=== PATIENT | female | born 2005 | race Caucasian/White ===

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

== ENCOUNTER 2023-01-24 17:01 | Emergency (ER) | payer OTHER ==
[~2023-01-24] VITALS: Ht 162.6 cm; Wt 63.6 kg
[~2023-01-24 17:01] MED LIST: ALBU8.5H INH; OLAN1TAB20 PO
[2023-01-24] MEDS ORDERED: DOCU100C16 PO (17:18)
[2023-01-24] MEDS ORDERED: SERT50TA29 PO (17:18)
[2023-01-24] MEDS ORDERED: CLON-412 PO (17:18)
[2023-01-24] MEDS ORDERED: HALO5TAB33 PO (17:18)
[2023-01-24] MEDS ORDERED: BENZ0.5T23 PO (17:18)
[2023-01-24 17:52] LABS: HEMATOCRIT 36.8 % (36.0-47.0); HEMOGLOBIN 11.5 g/dl (12.0-15.5); MEAN CORPUSCULAR HEMOGLOBIN 26.6 pg (27.0-33.0); MEAN CORPUSCULAR HGB CONC 31.3 g/dl (32.0-36.5); PLATELET COUNT, AUTOMATED 303 10^3/uL (150-450); RED BLOOD COUNT 4.33 10^6/uL (4.00-5.40); WHITE BLOOD COUNT 6.5 10^3/uL (4.0-10.0)
[2023-01-24 18:12] LABS: HCG, SERUM QUALITATIVE NEGATIVE (NEGATIVE)
[2023-01-24 18:13] LABS: ETHYL ALCOHOL (ETHANOL) 0.005 % (0.000-0.010)
[2023-01-24 18:14] LABS: SALICYLATE LEVEL < 3.0 MG/DL (<30)
[2023-01-24 18:15] LABS: ACETAMINOPHEN LEVEL < 2.0 UG/ML (10.0-20.0); ALBUMIN 3.8 G/DL (3.2-5.2); ALKALINE PHOSPHATASE 86 U/L (46-116); ALT/SGPT 34 U/L (7.0-40); AST/SGOT 29 U/L (<34); BILIRUBIN,DIRECT 0.2 MG/DL (<0.4); BILIRUBIN,TOTAL 0.8 MG/DL (0.3-1.2); BLOOD UREA NITROGEN 12 MG/DL (9-23); CALCIUM LEVEL 8.9 MG/DL (8.5-10.1); CARBON DIOXIDE LEVEL 26 MMOL/L (20-31); CHLORIDE LEVEL 106 MMOL/L (98-107); CREATININE FOR GFR 0.71 MG/DL (0.55-1.30); GLUCOSE, FASTING 94 MG/DL (60-100); POTASSIUM SERUM 3.9 MMOL/L (3.5-5.1); SODIUM LEVEL 140 MMOL/L (136-145); TOTAL PROTEIN 6.7 G/DL (5.7-8.2)
[2023-01-24 18:17] LABS: THYROID STIMULATING HORMONE 1.435 uIU/ML (0.48-4.17)
[2023-01-24] MEDS ORDERED: cloNIDine 0.1MG TABLET PO PRN (18:20)
[2023-01-24 18:23] LABS: AMPHETAMINES LEVEL URINE NEGATIVE (NEGATIVE); BENZODIAZEPINES URINE NEGATIVE (NEGATIVE); CANNABINOIDS URINE NEGATIVE (NEGATIVE); PHENCYCLIDINE URINE NEGATIVE (NEGATIVE)
[2023-01-24 18:24] LABS: BARBITURATES URINE NEGATIVE (NEGATIVE); COCAINE METABOLITE URINE NEGATIVE (NEGATIVE); METHADONE URINE NEGATIVE (NEGATIVE); OPIATES URINE NEGATIVE (NEGATIVE)
[2023-01-24] MEDS ORDERED: OLAN1TAB20 PO (18:52)
[2023-01-24] MEDS ORDERED: HOME MED LIST COMPLETE! XX SCH (18:55)
[2023-01-24 20:12] VITALS: BP 108/55
[2023-01-24] MEDS ORDERED: DOCUSATE SODIUM 100MG CAPSULE PO SCH (21:00)
[2023-01-25] MEDS ORDERED: SERTRALINE HCL 50 MG TAB PO SCH (09:00)
== END 2023-01-24 21:25 | disposition home or self-care (01) ==
LOC: M ED 17:01
DX: F20.9 Schizophrenia, unspecified (principal); F43.0 Acute stress reaction

== ENCOUNTER 2024-07-01 09:54 | Inpatient (IN) | payer OTHER ==
[~2024-07-01] VITALS: Ht 162.6 cm; Wt 102.5 kg
[~2024-07-01 09:54] MED LIST changes: +BENZ0.5T2 PO; +CLON-412 PO; +DOCU100C16 PO; +HALO5TAB33 PO; +SERT50TA29 PO
[2024-07-01 10:46] LABS: HEMATOCRIT 39.9 % (36.0-47.0); HEMOGLOBIN 13.2 g/dl (12.0-15.5); MEAN CORPUSCULAR HEMOGLOBIN 29.7 pg (27.0-33.0); MEAN CORPUSCULAR HGB CONC 33.1 g/dl (32.0-36.5); MEAN CORPUSCULAR VOLUME 89.7 fl (80.0-96.0); PLATELET COUNT, AUTOMATED 270 10^3/uL (150-450); RED BLOOD COUNT 4.45 10^6/uL (4.00-5.40)
[2024-07-01 11:12] LABS: AMPHETAMINES LEVEL URINE NEGATIVE (NEGATIVE)
[2024-07-01 11:17] LABS: ETHYL ALCOHOL (ETHANOL) 0.007 % (0.000-0.010)
[2024-07-01 11:17] LABS: BARBITURATES URINE NEGATIVE (NEGATIVE); COCAINE METABOLITE URINE NEGATIVE (NEGATIVE); METHADONE URINE NEGATIVE (NEGATIVE); OPIATES URINE NEGATIVE (NEGATIVE); PHENCYCLIDINE URINE NEGATIVE (NEGATIVE)
[2024-07-01 11:19] LABS: BENZODIAZEPINES URINE POSITIVE (NEGATIVE); CANNABINOIDS URINE POSITIVE (NEGATIVE)
[2024-07-01 11:19] LABS: ALBUMIN 4.2 G/DL (3.2-5.2); ALKALINE PHOSPHATASE 108 U/L (46-116); ALT/SGPT 15 U/L (7.0-40); AST/SGOT 20 U/L (<34); BILIRUBIN,DIRECT 0.2 MG/DL (<0.4); BILIRUBIN,TOTAL 0.5 MG/DL (0.3-1.2); BLOOD UREA NITROGEN 8 MG/DL (9-23); CALCIUM LEVEL 9.3 MG/DL (8.5-10.1); CARBON DIOXIDE LEVEL 26 MMOL/L (20-31); CHLORIDE LEVEL 110 MMOL/L (98-107); CREATININE FOR GFR 0.84 MG/DL (0.55-1.30); GLOMERULAR FILTRATION RATE > 60.0 (>60); GLUCOSE, FASTING 80 MG/DL (60-100); POTASSIUM SERUM 4.5 MMOL/L (3.5-5.1); SALICYLATE LEVEL < 3.0 MG/DL (<30); SODIUM LEVEL 140 MMOL/L (136-145); TOTAL PROTEIN 7.2 G/DL (5.7-8.2)
[2024-07-01 11:23] LABS: THYROID STIMULATING HORMONE 1.393 uIU/ML (0.55-4.78)
[2024-07-01 11:30] LABS: HCG, SERUM QUALITATIVE NEGATIVE (NEGATIVE)
[2024-07-01] MEDS ORDERED: MELA5TAB10 PO (12:13)
[2024-07-01] MEDS ORDERED: ALPR0.5T3 PO (12:13)
[2024-07-01] MEDS ORDERED: cloNIDine 0.1MG TABLET PO PRN (12:20)
[2024-07-01] MEDS: cloNIDine 0.1MG TABLET PO PRN (12:50)
[2024-07-01] MEDS: NICOTINE 21MG/24HR 1 EA TRANSDERMAL TD ONE (12:50)
[2024-07-01] MEDS ORDERED: HOME MED LIST COMPLETE! XX SCH (14:25)
[2024-07-01] MEDS: OLANZapine 10 MG TAB PO SCH (20:32)
[2024-07-02] MEDS ORDERED: IBUPROFEN 400MG TAB PO PRN (08:55)
[2024-07-02] MEDS ORDERED: MAALOX 30 ML SUSP *UDC PO PRN (08:55)
[2024-07-02] MEDS ORDERED: MOM 30ML SUSPENSION UDC PO PRN (08:55)
[2024-07-02] MEDS: UNRESOLVED CLARIFICATION ENTRY XX SCH (09:00)
[2024-07-02] MEDS: SERTRALINE HCL 50 MG TAB PO SCH (09:11)
[2024-07-02 10:12] VITALS: BP 111/73; TEMP 97.8; O2SAT 98
[2024-07-02] MEDS: diphenhydrAMINE 25MG CAP PO PRN (10:37)
[2024-07-02] MEDS: NICOTINE 21MG/24HR 1 EA TRANSDERMAL TD SCH (13:01)
[2024-07-02 15:27] VITALS: BP 126/77; TEMP 98.2; O2SAT 99
[2024-07-02] MEDS: traZODone 50 MG TAB PO PRN (20:11)
[2024-07-02] MEDS: OLANZapine 10 MG TAB PO SCH (20:11)
[2024-07-02] MEDS ORDERED: cloNIDine 0.1MG TABLET PO PRN (20:20)
[2024-07-02] MEDS ORDERED: UNRESOLVED CLARIFICATION ENTRY XX SCH (21:00)
[2024-07-03 06:37] VITALS: BP 130/64; TEMP 97.8; O2SAT 98
[2024-07-03] MEDS: SERTRALINE HCL 50 MG TAB PO SCH (08:14)
[2024-07-03 08:51] VITALS: BP 142/78
[2024-07-03] MEDS: clonazePAM 0.5 MG TAB PO SCH (09:19)
[2024-07-03] MEDS: cloNIDine 0.1MG TABLET PO SCH (09:19)
[2024-07-03 16:17] VITALS: BP 112/76; TEMP 97.3; O2SAT 97
[2024-07-03] MEDS ORDERED: ALBUTEROL 90 MCG/ACT 8GM HFA INHALER INH PRN (18:45)
[2024-07-03] MEDS: OLANZapine 10 MG TAB PO SCH (20:00)
[2024-07-04 06:20] VITALS: BP 127/62; TEMP 97.5; O2SAT 100
[2024-07-04 08:55] VITALS: BP 126/68
[2024-07-04] MEDS: SERTRALINE HCL 25 MG TABLET PO SCH (08:55)
[2024-07-04 16:26] VITALS: BP 116/66; TEMP 98.8; O2SAT 97
[2024-07-04] MEDS: NICOTINE POLACRILEX 2 MG GUM PO PRN (20:10)
[2024-07-05 06:43] VITALS: BP 114/59; TEMP 98.1; O2SAT 98
[2024-07-05 15:54] VITALS: BP 112/62; TEMP 98.2; O2SAT 100
[2024-07-06 06:24] VITALS: BP 114/65; TEMP 98.7; O2SAT 98
[2024-07-06 16:00] VITALS: BP 115/62; TEMP 98.7; O2SAT 95
[2024-07-06] MEDS: ACETAMINOPHEN TAB 650MG DOSE (2X325MG) PO PRN (17:08)
[2024-07-07 06:38] VITALS: BP 128/70; TEMP 98.5; O2SAT 97
[2024-07-07 08:02] VITALS: BP 135/73
[2024-07-07 08:05] VITALS: BP 135/73
[2024-07-07] MEDS ORDERED: OLAN1TAB20 PO ×2 (10:57→14:07)
[2024-07-07] MEDS ORDERED: SERT25TA21 PO ×2 (10:57→14:07)
== END 2024-07-07 13:15 | disposition home or self-care (01) | DRG 751 ==
LOC: M ED 09:54 → M ED INP 07-02 08:55 → M PSY 07-02 09:36
PROVIDERS: ADMIT Psychiatry & Neurology Psychiatry; ATTEND Psychiatry & Neurology Psychiatry
DX: F33.9 Major depressive disorder, recurrent, unspecified (principal); R45.851 Suicidal ideations; Z79.899 Other long term (current) drug therapy

== ENCOUNTER → 2024-08-22 | Outpatient (REF) | payer OTHER, MEDICAID ==
[~2024-08-22] MED LIST changes: +ALPR0.5T3 PO; +MELA5TAB10 PO; +SERT25TA21 PO
[2024-08-22 17:51] LABS: ALBUMIN 4.1 G/DL (3.2-5.2); ALKALINE PHOSPHATASE 108 U/L (35-104); ALT/SGPT 25 U/L (7.0-40); AST/SGOT 19 U/L (<34); BILIRUBIN,TOTAL 0.5 MG/DL (0.3-1.2); BLOOD UREA NITROGEN 12 MG/DL (9-23); CALCIUM LEVEL 9.9 MG/DL (8.5-10.1); CARBON DIOXIDE LEVEL 25 MMOL/L (20-31); CHLORIDE LEVEL 110 MMOL/L (98-107); CHOLESTEROL LEVEL 168 MG/DL (<200); CREATININE FOR GFR 0.74 MG/DL (0.55-1.30); GLOMERULAR FILTRATION RATE > 60.0 (>60); GLUCOSE, FASTING 87 MG/DL (60-100); HDL CHOLESTEROL 40.9 MG/DL (>40); LDL CHOLESTEROL 88.3 MG/DL (<100); NON-HDL-C 127.1 MG/DL; POTASSIUM SERUM 4.1 MMOL/L (3.5-5.1); SODIUM LEVEL 141 MMOL/L (136-145); TOTAL PROTEIN 7.5 G/DL (5.7-8.2); TRIGLYCERIDES LEVEL 194 MG/DL (<150)
[2024-08-22 17:53] LABS: FREE T4 1.06 NG/DL (0.89-1.76); THYROID STIMULATING HORMONE 1.503 uIU/ML (0.55-4.78)
== END ==
LOC: M LAB REF 16:28
PROVIDERS: ATTEND Family Medicine Addiction Medicine
DX: N91.2 Amenorrhea, unspecified (principal); Z68.34 Body mass index [BMI] 34.0-34.9, adult

== ENCOUNTER 2025-01-27 18:47 | Inpatient (IN) | payer OTHER ==
[~2025-01-27] VITALS: Ht 160 cm; Wt 87.0 kg
[2025-01-27] MEDS: ACETAMINOPHEN 325 MG TAB PO ONE (22:09)
[2025-01-27] MEDS ORDERED: MOM 30ML SUSPENSION UDC PO PRN (22:55)
[2025-01-27] MEDS ORDERED: MAALOX 30 ML SUSP *UDC PO PRN (22:55)
[2025-01-27] MEDS ORDERED: EXCETAB32 PO (22:57)
[2025-01-27] MEDS ORDERED: HOME MED LIST COMPLETE! XX SCH (23:00)
[2025-01-28] MEDS: IBUPROFEN 400MG TAB PO PRN (01:35)
[2025-01-28] MEDS: diphenhydrAMINE 25MG CAP PO PRN (01:36)
[2025-01-28 04:05] VITALS: BP 118/73; TEMP 97.8; O2SAT 96
[2025-01-28 15:52] VITALS: BP 115/61; TEMP 97.3; O2SAT 98
[2025-01-28] MEDS: hydrOXYzine 50 MG TAB PO PRN (19:08)
[2025-01-28] MEDS: CALAMINE LOTION 177 ML BTL TOP PRN (19:08)
[2025-01-28 19:42] LABS: Trichomonas vaginalis (AMP) NOT DETECTED (NEGATIVE)
[2025-01-28 19:46] LABS: URINE PREG TEST NEGATIVE (NEGATIVE)
[2025-01-28 20:06] LABS: GC DNA AMPLIFICATION NEGATIVE (NEGATIVE)
[2025-01-28] MEDS: CARIPRAZINE 1.5MG CAPSULE (VRAYLAR) PO SCH (20:30)
[2025-01-28] MEDS: CLOTRIMAZOLE 1% TOPICAL CREAM 30GM TOP SCH (20:31)
[2025-01-28] MEDS: traZODone 50 MG TAB PO PRN (21:02)
[2025-01-29 06:23] VITALS: BP 119/57; TEMP 97.1; O2SAT 98
[2025-01-29] MEDS: cloNIDine HCL 0.1 MG/24 HR PATCH TOP SCH (09:52)
[2025-01-29 11:49] LABS: BASO # 0.1 10^3/uL (0.0-0.2); BASO % 0.7 % (0.0-1.0); EOS # 0.1 10^3/uL (0.0-0.5); EOS % 0.8 % (0.0-3.0); HEMATOCRIT 39.3 % (36.0-47.0); LYMPH # 2.4 10^3/uL (1.5-5.0); LYMPH % 31.5 % (24.0-44.0); MEAN CORPUSCULAR HEMOGLOBIN 30.3 pg (27.0-33.0); MEAN CORPUSCULAR HGB CONC 33.1 g/dl (32.0-36.5); MEAN CORPUSCULAR VOLUME 91.6 fl (80.0-96.0); MONO # 0.7 10^3/uL (0.0-0.8); MONO % 9.2 % (2.0-8.0); NEUTROPHILS # 4.4 10^3/uL (1.5-8.5); NEUTROPHILS % 57.7 % (36.0-66.0); PLATELET COUNT, AUTOMATED 288 10^3/uL (150-450); RED BLOOD COUNT 4.29 10^6/uL (4.00-5.40); WHITE BLOOD COUNT 7.6 10^3/uL (4.0-10.0)
[2025-01-29 12:17] LABS: BLOOD UREA NITROGEN 12 MG/DL (9-23); CALCIUM LEVEL 9.4 MG/DL (8.5-10.1); CARBON DIOXIDE LEVEL 28 MMOL/L (20-31); CHLORIDE LEVEL 104 MMOL/L (98-107); CREATININE FOR GFR 0.72 MG/DL (0.55-1.30); GLOMERULAR FILTRATION RATE > 90.0 (>60); GLUCOSE, FASTING 80 MG/DL (60-100); POTASSIUM SERUM 3.9 MMOL/L (3.5-5.1); SODIUM LEVEL 140 MMOL/L (136-145)
[2025-01-29] MEDS: ACETAMINOPHEN 325 MG TAB PO PRN (13:33)
[2025-01-29] MEDS: FLUZONE VACCINE TRIVALENT PF(2024-25) 0.5ML SYRINGE IM.IMMUN ONE (15:26)
[2025-01-29 16:30] VITALS: BP 142/91; TEMP 97.9; O2SAT 96
[2025-01-30 06:21] VITALS: BP 106/71; TEMP 98; O2SAT 100
[2025-01-30 08:22] LABS: CHOLESTEROL RISK RATIO 2.85 (<5); HDL CHOLESTEROL 40.7 MG/DL (>40); LDL CHOLESTEROL 60.9 MG/DL (<100); NON-HDL-C 75.3 MG/DL
[2025-01-30 15:05] VITALS: BP 121/60; TEMP 97.5; O2SAT 98
[2025-01-30] MEDS: hydrOXYzine 50 MG TAB PO SCH (20:32)
[2025-01-30] MEDS: CARIPRAZINE 3MG CAPSULE (VRAYLAR) PO SCH (20:32)
[2025-01-30] MEDS: NICOTINE 7 MG/24 HR TRANSDERMAL TD PRN (22:13)
[2025-01-31 06:47] VITALS: BP 109/74; TEMP 97.2; O2SAT 98
[2025-01-31 15:44] VITALS: BP 104/60; TEMP 97.2; O2SAT 98
[2025-02-01 06:42] VITALS: BP 102/54; TEMP 97; O2SAT 96
[2025-02-01 16:07] VITALS: BP 111/60; TEMP 97.6; O2SAT 98
[2025-02-02 06:22] VITALS: BP 97/50; TEMP 97.7; O2SAT 96
[2025-02-02] MEDS: cloNIDine 0.1MG TABLET PO SCH (20:36)
[2025-02-03 06:27] VITALS: BP 103/57; TEMP 97.3; O2SAT 97
[2025-02-03] MEDS ORDERED: CLONI1TA PO (07:53)
[2025-02-03] MEDS ORDERED: HYDR50TA70 PO (07:53)
[2025-02-03] MEDS ORDERED: VRAY3CAP PO (07:53)
[2025-02-03] MEDS ORDERED: CALALOT4 TOP (07:53)
[2025-02-03] MEDS ORDERED: CLOTR1CR TOP (07:53)
[2025-02-03 08:56] VITALS: BP 108/65
[2025-02-03 08:58] VITALS: BP 108/65
[2025-02-04] MEDS ORDERED: EMTR1TAB16 PO (11:25)
[2025-02-04] MEDS ORDERED: RALT40TA PO (11:25)
[2025-02-04] MEDS ORDERED: VRAY3CAP PO (20:02)
[2025-02-04] MEDS ORDERED: CLOT15CR4 TOP (20:02)
[2025-02-04] MEDS ORDERED: HYDR50TA70 PO (20:02)
[2025-02-04] MEDS ORDERED: CALALOT4 TOP (20:02)
== END 2025-02-03 10:02 | disposition home or self-care (01) | DRG 750 ==
LOC: M ED 18:47 → M ED INP 22:52 → M PSY 01-28 00:37
PROVIDERS: ADMIT Student in an Organized Health Care Education/Training Program; ATTEND Student in an Organized Health Care Education/Training Program
DX: F25.0 Schizoaffective disorder, bipolar type (principal); Z59.00 Homelessness unspecified; R45.851 Suicidal ideations; F41.1 Generalized anxiety disorder; F12.90 Cannabis use, unspecified, uncomplicated; F17.210 Nicotine dependence, cigarettes, uncomplicated; R21 Rash and other nonspecific skin eruption; F60.3 Borderline personality disorder

== ENCOUNTER 2025-02-04 09:03 | Inpatient (IN) | payer OTHER ==
[~2025-02-04] VITALS: Ht 162.6 cm; Wt 89.4 kg
[~2025-02-04 09:03] MED LIST changes: +CALALOT4 TOP; +CLONI1TA PO; +CLOTR1CR TOP; +EMTRICITABINE/TENOFOVIR 200MG/300MG TABLET PO SCH; +EXCETAB32 PO; +HYDR50TA70 PO; +RALTEGRAVIR 400 MG TAB (ISENTRESS) PO SCH; +VRAY3CAP PO
[2025-02-04 10:46] LABS: BASO # 0.1 10^3/uL (0.0-0.2); BASO % 0.7 % (0.0-1.0); EOS # 0.1 10^3/uL (0.0-0.5); EOS % 1.4 % (0.0-3.0); HEMATOCRIT 36.1 % (36.0-47.0); HEMOGLOBIN 11.9 g/dl (12.0-15.5); LYMPH # 2.2 10^3/uL (1.5-5.0); LYMPH % 31.3 % (24.0-44.0); MEAN CORPUSCULAR HEMOGLOBIN 30.3 pg (27.0-33.0); MEAN CORPUSCULAR VOLUME 91.9 fl (80.0-96.0); MONO # 0.7 10^3/uL (0.0-0.8); MONO % 10.5 % (2.0-8.0); NEUTROPHILS # 3.9 10^3/uL (1.5-8.5); NEUTROPHILS % 55.8 % (36.0-66.0); PLATELET COUNT, AUTOMATED 255 10^3/uL (150-450); RED BLOOD COUNT 3.93 10^6/uL (4.00-5.40)
[2025-02-04 11:15] LABS: ALBUMIN 3.7 G/DL (3.2-5.2); ALKALINE PHOSPHATASE 68 U/L (35-104); ALT/SGPT 20 U/L (7.0-40); AST/SGOT 22 U/L (<34); BILIRUBIN,TOTAL 1.1 MG/DL (0.3-1.2); BLOOD UREA NITROGEN 18 MG/DL (9-23); CALCIUM LEVEL 9.2 MG/DL (8.5-10.1); CARBON DIOXIDE LEVEL 25 MMOL/L (20-31); CHLORIDE LEVEL 107 MMOL/L (98-107); CREATININE FOR GFR 0.73 MG/DL (0.55-1.30); GLOMERULAR FILTRATION RATE > 90.0 (>60); GLUCOSE, FASTING 80 MG/DL (60-100); POTASSIUM SERUM 4.1 MMOL/L (3.5-5.1); SODIUM LEVEL 140 MMOL/L (136-145); TOTAL PROTEIN 6.4 G/DL (5.7-8.2)
[2025-02-04 11:17] LABS: HEPATITIS B SURFACE ANTIBODY NEGATIVE (POSITIVE)
[2025-02-04 11:18] LABS: HCG, SERUM QUALITATIVE NEGATIVE (NEGATIVE)
[2025-02-04] MEDS ORDERED: EMTR1TAB16 PO (11:25)
[2025-02-04] MEDS ORDERED: EXPOSURE KIT-ADULT 7 DAY SUPPLY PO ONE (11:25)
[2025-02-04] MEDS ORDERED: RALT40TA PO (11:25)
[2025-02-04 11:29] LABS: HEPATITIS B SURFACE ANTIGEN NEGATIVE (NEGATIVE)
[2025-02-04 11:42] LABS: HIV 1&2 SCREEN NEGATIVE (NEGATIVE)
[2025-02-04 11:51] LABS: HEPATITIS C VIRUS ABY INDEX 0.04 INDEX (<0.8)
[2025-02-04] MEDS: ACETAMINOPHEN 500 MG TAB PO ONE (13:10)
[2025-02-04 14:31] LABS: ETHYL ALCOHOL (ETHANOL) 0.003 % (0.000-0.010)
[2025-02-04 14:33] LABS: SALICYLATE LEVEL < 3.0 MG/DL (<30)
[2025-02-04] MEDS: EMTRICITABINE/TENOFOVIR 200MG/300MG TABLET PO ONE (17:03)
[2025-02-04] MEDS: ULIPRISTAL ACETATE 30MG TAB (ELLA) PO ONE (17:03)
[2025-02-04] MEDS: metroNIDAZOLE (FLAGYL) 500MG TABLET PO ONE (17:04)
[2025-02-04] MEDS: RALTEGRAVIR 400 MG TAB (ISENTRESS) PO ONE (17:04)
[2025-02-04] MEDS: AZITHROMYCIN 250MG TABLET PO ONE (17:05)
[2025-02-04] MEDS: cefTRIAXone 500MG VIAL IM ONE (17:06)
[2025-02-04] MEDS: LIDOCAINE 1% SDV 5ML VIAL DILUENT ONE (17:06)
[2025-02-04] MEDS: HEPATITIS B VACCINE 20MCG/ML 1ML SYRINGE (ADULT DOSE) IM.IMMUN ONE (17:08)
[2025-02-04] MEDS: ONDANSETRON 4MG ORAL DISINTEGRATING TAB PO ONE (18:39)
[2025-02-04] MEDS ORDERED: VRAY3CAP PO (20:02)
[2025-02-04] MEDS ORDERED: HYDR50TA70 PO (20:02)
[2025-02-04] MEDS ORDERED: CALALOT4 TOP (20:02)
[2025-02-04] MEDS ORDERED: CLOT15CR4 TOP (20:02)
[2025-02-04] MEDS ORDERED: HOME MED LIST COMPLETE! XX SCH (20:05)
[2025-02-04] MEDS: CARIPRAZINE 3MG CAPSULE (VRAYLAR) PO STA (20:59)
[2025-02-04] MEDS: LORazepam 2 MG TAB PO STA (20:59)
[2025-02-04 21:10] LABS: AMPHETAMINES LEVEL URINE NEGATIVE (NEGATIVE); BARBITURATES URINE NEGATIVE (NEGATIVE); BENZODIAZEPINES URINE NEGATIVE (NEGATIVE); CANNABINOIDS URINE NEGATIVE (NEGATIVE); COCAINE METABOLITE URINE NEGATIVE (NEGATIVE); METHADONE URINE NEGATIVE (NEGATIVE); OPIATES URINE NEGATIVE (NEGATIVE); PHENCYCLIDINE URINE NEGATIVE (NEGATIVE)
[2025-02-04] MEDS ORDERED: MOM 30ML SUSPENSION UDC PO PRN (22:00)
[2025-02-04] MEDS ORDERED: ACETAMINOPHEN 325 MG TAB PO PRN (22:00)
[2025-02-04] MEDS ORDERED: IBUPROFEN 400MG TAB PO PRN (22:00)
[2025-02-04] MEDS ORDERED: hydrOXYzine 50 MG TAB PO PRN (22:00)
[2025-02-05] MEDS: diphenhydrAMINE 25MG CAP PO PRN (00:02)
[2025-02-05] MEDS: traZODone 50 MG TAB PO PRN (00:02)
[2025-02-05 00:13] VITALS: BP 134/77; TEMP 97.4
[2025-02-05 06:39] VITALS: BP 133/81; TEMP 98.5; O2SAT 96
[2025-02-05] MEDS: cloNIDine 0.1MG TABLET PO SCH (09:07)
[2025-02-05] MEDS: **NOTE PATIENT COMMENT** MISC XX SCH (10:00)
[2025-02-05] MEDS: EMTRICITABINE/TENOFOVIR 200MG/300MG TABLET PO SCH (11:15)
[2025-02-05] MEDS: RALTEGRAVIR 400 MG TAB (ISENTRESS) PO SCH (11:16)
[2025-02-05] MEDS: LORazepam 1 MG TAB PO PRN (11:23)
[2025-02-05] MEDS: FLUCONAZOLE 50MG TABLET PO ONE (13:47)
[2025-02-05 15:44] VITALS: BP 124/62; TEMP 97.7; O2SAT 98
[2025-02-05] MEDS: CARIPRAZINE 3MG CAPSULE (VRAYLAR) PO SCH (20:06)
[2025-02-06 06:41] VITALS: BP 104/53; TEMP 97.6; O2SAT 98
[2025-02-06] MEDS: cloNIDine 0.1MG TABLET PO SCH (08:29)
[2025-02-06 17:16] VITALS: BP 111/59; TEMP 96.7; O2SAT 99
[2025-02-06] MEDS: OLANZapine 5 MG TAB PO SCH (20:22)
[2025-02-07 06:36] VITALS: BP 117/57; TEMP 97.3; O2SAT 98
[2025-02-07] MEDS: NICOTINE POLACRILEX 2 MG GUM PO PRN (11:42)
[2025-02-07 11:44] LABS: Trichomonas vaginalis (AMP) NOT DETECTED (NEGATIVE)
[2025-02-07 12:08] LABS: GC DNA AMPLIFICATION NEGATIVE (NEGATIVE)
[2025-02-07 15:38] VITALS: BP 120/60; TEMP 97.9
[2025-02-08 06:27] VITALS: BP 127/70; TEMP 96.8; O2SAT 100
[2025-02-08] MEDS: OLANZapine 5 MG TAB PO PRN (06:34)
[2025-02-08 08:41] VITALS: BP 114/57
[2025-02-08 14:20] VITALS: BP 106/57; TEMP 97.9; O2SAT 98
[2025-02-09] MEDS ORDERED: RALTEGRAVIR 400 MG TAB (ISENTRESS) PO SCH
[2025-02-09] MEDS ORDERED: EMTRICITABINE/TENOFOVIR 200MG/300MG TABLET PO SCH
[2025-02-09 06:53] VITALS: BP 119/63; TEMP 97.5; O2SAT 98
[2025-02-09] MEDS ORDERED: EMTR1TAB3 PO (08:34)
[2025-02-09] MEDS ORDERED: OLAN1TAB16 PO (08:34)
[2025-02-09] MEDS ORDERED: RALT40TA PO (08:34)
[2025-02-09] MEDS ORDERED: CLONI1TA PO (08:34)
[2025-02-09 08:45] VITALS: BP 119/63
[2025-02-09] MEDS: hydrOXYzine 50 MG TAB PO STA (10:17)
== END 2025-02-09 12:29 | disposition home or self-care (01) | DRG 885 ==
LOC: M ED 09:03 → M ED INP 21:56 → M PSY 23:38
PROVIDERS: ADMIT Psychiatry & Neurology Neurology; ATTEND Psychiatry & Neurology Neurology
DX: F25.0 Schizoaffective disorder, bipolar type (principal); R45.851 Suicidal ideations; Z59.00 Homelessness unspecified; F12.90 Cannabis use, unspecified, uncomplicated; F43.10 Post-traumatic stress disorder, unspecified; Z91.410 Personal history of adult physical and sexual abuse; F41.9 Anxiety disorder, unspecified; F17.210 Nicotine dependence, cigarettes, uncomplicated; Z79.899 Other long term (current) drug therapy

== ENCOUNTER 2025-02-13 10:54 | Emergency (ER) | payer OTHER ==
[~2025-02-13] VITALS: Ht 162.6 cm; Wt 85.0 kg
[~2025-02-13 10:54] MED LIST changes: +CLOT15CR4 TOP; +EMTR1TAB16 PO; +EMTR1TAB3 PO; -EMTRICITABINE/TENOFOVIR 200MG/300MG TABLET PO SCH; +OLAN1TAB16 PO; +RALT40TA PO; -RALTEGRAVIR 400 MG TAB (ISENTRESS) PO SCH
[2025-02-13 10:58] VITALS: BP 140/68; TEMP 97.4; O2SAT 98
[2025-02-14] MEDS ORDERED: OLAN1TAB16 PO (11:32)
[2025-02-14] MEDS ORDERED: CLONI1TA PO (11:32)
== END 2025-02-13 11:59 | disposition left against medical advice (07) ==
LOC: M ED 10:54
DX: Z53.21 Procedure and treatment not carried out due to patient leaving prior to being seen by health care provider (principal)

== ENCOUNTER 2025-02-14 04:57 | Inpatient (IN) | payer OTHER ==
[~2025-02-14] VITALS: Ht 162.6 cm; Wt 84.1 kg
[2025-02-14] MEDS: NS (Normal Saline) 0.9% 1,000 ML IV ONE (05:15)
[2025-02-14 05:25] LABS: BASO # 0.1 10^3/uL (0.0-0.2); BASO % 0.6 % (0.0-1.0); EOS % 0.1 % (0.0-3.0); HEMATOCRIT 36.5 % (36.0-47.0); HEMOGLOBIN 12.1 g/dl (12.0-15.5); LYMPH # 2.2 10^3/uL (1.5-5.0); LYMPH % 21.4 % (24.0-44.0); MEAN CORPUSCULAR HEMOGLOBIN 29.6 pg (27.0-33.0); MEAN CORPUSCULAR HGB CONC 33.2 g/dl (32.0-36.5); MEAN CORPUSCULAR VOLUME 89.2 fl (80.0-96.0); MONO # 0.8 10^3/uL (0.0-0.8); MONO % 7.5 % (2.0-8.0); NEUTROPHILS # 7.3 10^3/uL (1.5-8.5); NEUTROPHILS % 70.1 % (36.0-66.0); PLATELET COUNT, AUTOMATED 303 10^3/uL (150-450); RED BLOOD COUNT 4.09 10^6/uL (4.00-5.40); WHITE BLOOD COUNT 10.4 10^3/uL (4.0-10.0)
[2025-02-14 05:49] LABS: HCG, SERUM QUALITATIVE NEGATIVE (NEGATIVE)
[2025-02-14 06:03] LABS: ALBUMIN 4.4 G/DL (3.2-5.2); ALKALINE PHOSPHATASE 84 U/L (35-104); ALT/SGPT 24 U/L (7.0-40); AST/SGOT 34 U/L (<34); BILIRUBIN,DIRECT 0.4 MG/DL (<0.4); BILIRUBIN,TOTAL 1.1 MG/DL (0.3-1.2); BLOOD UREA NITROGEN 13 MG/DL (9-23); CALCIUM LEVEL 9.4 MG/DL (8.5-10.1); CARBON DIOXIDE LEVEL 22 MMOL/L (20-31); CHLORIDE LEVEL 108 MMOL/L (98-107); CPK CREATINE PHOSPHOKINASE 406 U/L (34-145); CREATININE FOR GFR 0.96 MG/DL (0.55-1.30); ETHYL ALCOHOL (ETHANOL) < 0.003 % (0.000-0.010); GLOMERULAR FILTRATION RATE 86.3 (>60); GLUCOSE, FASTING 104 MG/DL (60-100); POTASSIUM SERUM 3.8 MMOL/L (3.5-5.1); SALICYLATE LEVEL < 3.0 MG/DL (<30); SODIUM LEVEL 142 MMOL/L (136-145); THYROID STIMULATING HORMONE 1.084 uIU/ML (0.55-4.78); TOTAL PROTEIN 7.2 G/DL (5.7-8.2)
[2025-02-14 06:53] LABS: AMPHETAMINES LEVEL URINE NEGATIVE (NEGATIVE); BARBITURATES URINE NEGATIVE (NEGATIVE); COCAINE METABOLITE URINE NEGATIVE (NEGATIVE); METHADONE URINE NEGATIVE (NEGATIVE); OPIATES URINE NEGATIVE (NEGATIVE); PHENCYCLIDINE URINE NEGATIVE (NEGATIVE)
[2025-02-14 06:54] LABS: BENZODIAZEPINES URINE POSITIVE (NEGATIVE); CANNABINOIDS URINE POSITIVE (NEGATIVE)
[2025-02-14] MEDS ORDERED: CLONI1TA PO (11:32)
[2025-02-14] MEDS ORDERED: OLAN1TAB16 PO (11:32)
[2025-02-14 11:54] LABS: MAGNESIUM LEVEL 1.8 MG/DL (1.8-2.4)
[2025-02-14] MEDS ORDERED: HOME MED LIST COMPLETE! XX SCH (12:30)
[2025-02-14] MEDS: LORazepam 1 MG TAB PO STA (13:08)
[2025-02-14] MEDS: MAG SULF 1GM/100ML (MAG RUN) 1 GM in IV 1 EA IV ONE ×2 (13:08→14:37)
[2025-02-14] MEDS: LORazepam 2 MG/ML 1ML VIAL IV STA (14:45)
[2025-02-15 11:02] VITALS: BP 116/66; TEMP 97
[2025-02-15] MEDS ORDERED: MAALOX 30 ML SUSP *UDC PO PRN (11:10)
[2025-02-15] MEDS ORDERED: MOM 30ML SUSPENSION UDC PO PRN (11:10)
[2025-02-15] MEDS: IBUPROFEN 400MG TAB PO PRN (12:36)
[2025-02-15] MEDS: OLANZapine ORAL DISINTEGRATING TAB 5MG PO PRN (12:59)
[2025-02-15] MEDS: cloNIDine 0.1MG TABLET PO SCH (15:50)
[2025-02-15 16:07] VITALS: BP 118/68; TEMP 97.4; O2SAT 99
[2025-02-15] MEDS: ACETAMINOPHEN 325 MG TAB PO PRN (17:46)
[2025-02-15] MEDS: traZODone 50 MG TAB PO PRN (20:26)
[2025-02-15] MEDS: hydrOXYzine 50 MG TAB PO PRN (20:26)
[2025-02-15] MEDS: OLANZapine 5 MG TAB PO SCH (20:26)
[2025-02-15] MEDS: CARIPRAZINE 3MG CAPSULE (VRAYLAR) PO SCH (20:26)
[2025-02-15] MEDS: NICOTINE POLACRILEX 2 MG GUM PO PRN (20:26)
[2025-02-16 06:39] VITALS: BP 98/63; TEMP 97.2; O2SAT 99
[2025-02-16 08:12] VITALS: BP 108/61
[2025-02-16] MEDS: diphenhydrAMINE 25MG CAP PO PRN (08:49)
[2025-02-16] MEDS: LIDOCAINE 5% (LIDODERM) PATCH TD SCH (11:12)
[2025-02-16] MEDS: PALIPERIDONE 3MG ER TAB (INVEGA) PO SCH ×2 (14:39→20:13)
[2025-02-16 15:14] VITALS: BP 111/68; TEMP 97; O2SAT 100
[2025-02-17 08:00] VITALS: BP 138/72
[2025-02-17] MEDS: BENZTROPINE 1 MG TAB PO PRN (14:14)
[2025-02-17 18:06] VITALS: BP 119/68; TEMP 97.3
[2025-02-17 21:12] VITALS: BP 95/57
[2025-02-18 14:43] VITALS: BP 117/58; TEMP 97.5; O2SAT 98
[2025-02-19 06:24] VITALS: BP 115/56; TEMP 98.4; O2SAT 100
[2025-02-19 08:21] VITALS: BP 130/71
[2025-02-19] MEDS: PALIPERIDONE PAL 234MG/1.5ML INJ (INVEGA)(FREE PSY INPT ONLY) IM ONE (10:47)
[2025-02-19 15:11] VITALS: BP 102/55; TEMP 98.5; O2SAT 100
[2025-02-20 06:32] VITALS: BP 104/52; TEMP 97.1; O2SAT 100
[2025-02-20 09:05] VITALS: BP 102/70
[2025-02-20] MEDS ORDERED: NYSTATIN 100,000 UNITS/GM TOPICAL PWD 15GM TOP PRN (13:45)
[2025-02-20 15:24] VITALS: BP 112/62; TEMP 97.3; O2SAT 99
[2025-02-21 06:26] VITALS: BP 112/56; TEMP 97.9; O2SAT 100
[2025-02-21 15:44] VITALS: BP 100/68; TEMP 97.2; O2SAT 98
[2025-02-22 06:27] VITALS: BP 107/54; TEMP 97.5; O2SAT 98
[2025-02-22 15:53] VITALS: BP 136/67; TEMP 97.2; O2SAT 98
[2025-02-23 06:33] VITALS: BP 97/55; TEMP 97.5; O2SAT 100
[2025-02-23] MEDS ORDERED: PALIPERIDONE PAL 156MG/1ML INJ(INVEGA)(FREE PSY INPT ONLY) IM ONE (08:00)
[2025-02-23] MEDS ORDERED: INVE234I IM (08:11)
[2025-02-23] MEDS ORDERED: BENZ1TAB5 PO (08:11)
[2025-02-23] MEDS ORDERED: HYDR50CA2 PO (08:11)
[2025-02-23 08:34] VITALS: BP 130/60
[2025-02-23] MEDS: PALIPERIDONE PAL 156MG/1ML INJ(INVEGA)(FREE PSY INPT ONLY) IM ONE (09:58)
== END 2025-02-23 11:50 | disposition home or self-care (01) | DRG 750 ==
LOC: EDUNIT# 04:57 → EDBD 04:57 → M ED 04:57 → M ED INP 02-15 08:58 → M PSY 02-15 10:54
PROVIDERS: ADMIT Psychiatry & Neurology Psychiatry; ATTEND Psychiatry & Neurology Psychiatry
DX: F25.0 Schizoaffective disorder, bipolar type (principal); F43.10 Post-traumatic stress disorder, unspecified; F12.90 Cannabis use, unspecified, uncomplicated; Z59.00 Homelessness unspecified; R45.851 Suicidal ideations; F17.200 Nicotine dependence, unspecified, uncomplicated; Z79.899 Other long term (current) drug therapy